=== PATIENT | male | born 2000 | race Caucasian/White ===

== ENCOUNTER 2019-08-05 16:59 | Emergency (ER) | payer MEDICAID ==
[~2019-08-05] VITALS: Ht 157.5 cm; Wt 81.6 kg
[2019-08-05 17:43] LABS: Basophils # (auto) 0 uL; Basophils % (auto) 0.5 % (0.0-2.0); Eosinophils # (auto) 0.1 uL; Eosinophils % (auto) 0.8 % (0.0-7.0); Hematocrit 41.8 % (41.0-53.0); Hemoglobin 14.1 g/dL (13.5-17.5); Lymphocytes # (auto) 1.6 uL; Lymphocytes % (auto) 18.1 % (10.0-50.0); Mean Corpuscular Hemoglobin 28.8 pg (28.0-32.0); Mean Corpuscular Hgb Conc. 33.7 g/dL (32.0-36.0); Mean Corpuscular Volume 85.5 fL (80.0-100.0); Monocytes # (auto) 0.6 uL; Monocytes % (auto) 7.3 % (0.0-12.0); Neutrophils # (auto) 6.5 uL; Neutrophils % (auto) 73.3 % (37.0-80.0); Nucleated Red Blood Cells % 0.1 %; Platelet Count (auto) 380 10^3/uL (140-450); Red Blood Cells 4.88 10^6/uL (4.5-5.90); Red Cell Distribution Width 14.3 % (11.8-14.3); White Blood Cell 8.8 10^3/uL (4.4-10.8)
[2019-08-05 17:55] LABS: Salicylate < 1.7 mg/dL (2.8-20.0)
[2019-08-05 18:01] LABS: Acetaminophen < 2.0 ug/mL (10-30)
[2019-08-05 18:05] LABS: Albumin 4.5 g/dL (3.4-5.0); Calcium 9.2 mg/dL (8.5-10.1); Potassium 3.8 mmol/L (3.5-5.1)
[2019-08-05 18:08] LABS: BUN/Creatinine Ratio 12.7; Bilirubin, Total 0.2 mg/dL (0.2-1.0); Total Protein 8.1 g/dL (6.4-8.2)
[2019-08-05 22:16] LABS: Urine Bacteria NONE SEEN /hpf (None Seen); Urine Blood Negative /uL (Negative); Urine Mucus FEW (None Seen); Urine Specific Gravity 1.032 (1.001-1.035); Urine WBC 1 /hpf (0 - 3)
[2019-08-05 22:20] LABS: Amphetamine Screen, Urine NEGATIVE (NEGATIVE); Barbiturate Scree,Urine NEGATIVE (NEGATIVE); Benzodiazephine Screen, Urine NEGATIVE (NEGATIVE); Cannabinoid Screen, Urine NEGATIVE (NEGATIVE); Cocaine Screen, Urine NEGATIVE (NEGATIVE); Opiate Scree,Urine NEGATIVE (NEGATIVE); Phencyclidine Screen, Urine NEGATIVE (NEGATIVE)
[2019-08-06] MEDS ORDERED: LORazepam 0.5 MG TAB PO ONE (03:00)
[2019-08-06] MEDS ORDERED: HYDROcodone-ACET 10/325MG TAB PO ONE (21:30)
[2019-08-07] MEDS ORDERED: LORazepam 0.5 MG TAB PO ONE
[2019-08-07] MEDS ORDERED: ACETAMINOPHEN 500 MG TAB PO ONE (09:45)
[2019-08-07 13:35] VITALS: BP 140/90
== END 2019-08-07 13:44 | disposition short-term general hospital (02) ==
LOC: EDBD 16:59 → ER 17:04
DX: S61.512A Laceration without foreign body of left wrist, initial encounter (principal); S50.812A Abrasion of left forearm, initial encounter; F20.9 Schizophrenia, unspecified; I10 Essential (primary) hypertension; F31.9 Bipolar disorder, unspecified; M54.2 Cervicalgia; Y93.89 Activity, other specified; Y92.89 Other specified places as the place of occurrence of the external cause; Y99.8 Other external cause status
CPT/HCPCS: 36415; 72125; 80053; 80307; 80329; 81001; 85025

== ENCOUNTER 2020-01-14 17:24 | Inpatient (IN) | payer MEDICAID ==
[~2020-01-14] VITALS: Ht 170.2 cm; Wt 88.4 kg
[2020-01-14] MEDS ORDERED: SODIUM CHLORIDE 0.9% 1,000 ML IVB ONE (17:30)
[2020-01-14] MEDS ORDERED: SUCCINYLCHOLINE CHLORIDE 20 MG/ML 10ML VIAL IV ONE (17:55)
[2020-01-14] MEDS ORDERED: ETOMIDATE (2MG/ML) 20ML VIAL IV ONE (17:55)
[2020-01-14] MEDS ORDERED: NALOXONE HCL 0.4 MG/ML VIAL ONE ×2 (17:57→17:59)
[2020-01-14 18:01] LABS: Basophils # (auto) 0 10 ^3/uL (0-0.2); Basophils % (auto) 0.3 % (0.0-2.0); Eosinophils # (auto) 0.1 10 ^3/uL (0-0.8); Eosinophils % (auto) 0.7 % (0.0-7.0); Hematocrit 44.2 % (41.0-53.0); Hemoglobin 14.8 g/dL (13.5-17.5); Lymphocytes # (auto) 3.1 10 ^3/uL (0.4-5.4); Mean Corpuscular Hemoglobin 28.6 pg (28.0-32.0); Mean Corpuscular Hgb Conc. 33.4 g/dL (32.0-36.0); Mean Corpuscular Volume 85.6 fL (80.0-100.0); Monocytes # (auto) 0.9 10 ^3/uL (0-1.3); Monocytes % (auto) 7.7 % (0.0-12.0); Neutrophils # (auto) 7.3 10 ^3/uL (1.6-8.6); Neutrophils % (auto) 64.3 % (37.0-80.0); Platelet Count (auto) 379 10^3/uL (140-450); Red Blood Cells 5.16 10^6/uL (4.5-5.90); Red Cell Distribution Width 13.3 % (11.8-14.3); White Blood Cell 11.4 10^3/uL (4.4-10.8)
[2020-01-14] MEDS ORDERED: PROPOFOL 100 ML IV SCH (18:13)
[2020-01-14] MEDS ORDERED: PROPOFOL 100 ML IV ONE (18:18)
[2020-01-14 18:24] LABS: Alanine Aminotransferase 28 U/L (16-61); Albumin 4.2 g/dL (3.4-5.0); Anion Gap 10 (5-15); Aspartate Aminotransferase 19 U/L (15-37); BUN/Creatinine Ratio 6.2; Blood Alcohol < 3.0 mg/dL (0-5); Blood Urea Nitrogen 7 mg/dL (7-18); Calcium 8.8 mg/dL (8.5-10.1); Carbon Dioxide 22 mmol/L (21-32); Chloride 105 mmol/L (98-107); GFR African American 106 mL/min; GFR Non-African American 88 mL/min; Glucose 132 mg/dL (74-106); Potassium 3.4 mmol/L (3.5-5.1); Salicylate < 1.7 mg/dL (2.8-20.0); Sodium 137 mmol/L (136-145)
[2020-01-14 18:26] LABS: Alkaline Phosphatase 98 U/L (45-117); Bilirubin, Total 0.4 mg/dL (0.2-1.0); Total Protein 8.1 g/dL (6.4-8.2)
[2020-01-14] MEDS: PROPOFOL 100 ML IV SCH (18:36)
[2020-01-14 18:38] LABS: Acetaminophen < 2.0 ug/mL (10-30)
[2020-01-14] MEDS: SODIUM CHLORIDE 0.9% 1,000 ML IV SCH (18:45)
[2020-01-14] MEDS ORDERED: NITROGLYCERIN 0.4 MG SL TAB SL PRN (18:45)
[2020-01-14] MEDS ORDERED: MORPHINE SULF INJ 2 MG/ML SYRINGE 1ML IV PRN (18:45)
[2020-01-14] MEDS ORDERED: POTASSIUM CHLORIDE 40 MEQ, LIDOCAINE 1% (LOCAL ANESTH.) 4 ML in SODIUM CHL 0.9% 100 ML IV ONE (19:00)
[2020-01-14] MEDS ORDERED: ACTIVATED CHARCOAL 50 GM/240 ML SOL PO ONE (19:00)
[2020-01-14 19:22] LABS: Alcohol, Urine < 3.0 mg/dL (0-5); Amphetamine Screen, Urine NEGATIVE (NEGATIVE); Barbiturate Scree,Urine POSITIVE (NEGATIVE); Benzodiazephine Screen, Urine NEGATIVE (NEGATIVE); Cannabinoid Screen, Urine NEGATIVE (NEGATIVE); Cocaine Screen, Urine NEGATIVE (NEGATIVE); Opiate Scree,Urine NEGATIVE (NEGATIVE); Phencyclidine Screen, Urine NEGATIVE (NEGATIVE)
[2020-01-14 20:05] VITALS: BP 141/84
[2020-01-14] MEDS: fentaNYL Drip 2500mCg/250mlNS 250 ML IV SCH (20:57)
[2020-01-14] MEDS ORDERED: SODIUM BICARBONATE 8.4 % INJ 50ML VIAL IV ONE (21:15)
[2020-01-14] MEDS: cefTRIAXone 1GM/50ML D5W 50 ML IV SCH (21:28)
[2020-01-14 21:50] VITALS: BP 142/91
[2020-01-14] MEDS: MIDAZOLAM DRIP 50 mg/50mL 50 ML IV SCH (22:37)
[2020-01-14] MEDS: CLINDAMYCIN 300MG IV 50 ML IV SCH (23:09)
[2020-01-14 23:48] VITALS: BP 105/56
[2020-01-15] VITALS (11 sets, daily range): BP systolic 102–140; BP diastolic 51–88
[2020-01-15] MEDS: SODIUM CHLORIDE 0.9% 1,000 ML IV SCH ×3 (02:50→16:35)
[2020-01-15 06:08] LABS: Basophils # (auto) 0 10 ^3/uL (0-0.2); Basophils % (auto) 0.1 % (0.0-2.0); Eosinophils # (auto) 0 10 ^3/uL (0-0.8); Eosinophils % (auto) 0.1 % (0.0-7.0); Hematocrit 37.2 % (41.0-53.0); Hemoglobin 12.7 g/dL (13.5-17.5); Lymphocytes # (auto) 0.8 10 ^3/uL (0.4-5.4); Lymphocytes % (auto) 5.3 % (10.0-50.0); Mean Corpuscular Hemoglobin 29.4 pg (28.0-32.0); Mean Corpuscular Hgb Conc. 34.2 g/dL (32.0-36.0); Mean Corpuscular Volume 86.1 fL (80.0-100.0); Monocytes # (auto) 0.8 10 ^3/uL (0-1.3); Monocytes % (auto) 5.7 % (0.0-12.0); Neutrophils # (auto) 12.9 10 ^3/uL (1.6-8.6); Neutrophils % (auto) 88.8 % (37.0-80.0); Platelet Count (auto) 273 10^3/uL (140-450); Red Blood Cells 4.32 10^6/uL (4.5-5.90); Red Cell Distribution Width 13.6 % (11.8-14.3); White Blood Cell 14.6 10^3/uL (4.4-10.8)
[2020-01-15 06:25] LABS: Potassium 3.9 mmol/L (3.5-5.1)
[2020-01-15] MEDS: CLINDAMYCIN 300MG IV 50 ML IV SCH ×2 (06:31→14:24)
[2020-01-15 06:35] LABS: Albumin 3.3 g/dL (3.4-5.0); BUN/Creatinine Ratio 5.8; Bilirubin, Total 0.5 mg/dL (0.2-1.0); Calcium 8.1 mg/dL (8.5-10.1); Total Protein 6.6 g/dL (6.4-8.2)
[2020-01-15 08:47] LABS: Urine WBC None Seen /hpf (0 - 3)
[2020-01-15 09:00] LABS: Urine Amorphous Crystal FEW /hpf (None Seen); Urine Bacteria FEW /hpf (None Seen); Urine Blood 1+ /uL (Negative)
[2020-01-15] MEDS: cefTRIAXone 1GM/50ML D5W 50 ML IV SCH (09:15)
[2020-01-15] MEDS: PANTOPRAZOLE 40 MG/10 ML VIAL INJ IV SCH (09:58)
[2020-01-15] MEDS ORDERED: NALOXONE HCL 0.4 MG/ML VIAL IV ONE (10:00)
[2020-01-15] MEDS ORDERED: GLYCOPYRROLATE 0.2 MG/ML 1ML VIAL IV ONE (15:30)
[2020-01-15] MEDS ORDERED: PIPERACILLIN-TAZOB 3.375GM 100 ML IV ONE (16:15)
[2020-01-15] MEDS ORDERED: ALBUTEROL SULF 2.5 MG/0.5ML(0.5%) NEB SOLN NEB SCH (16:15)
[2020-01-15] MEDS: ALBUTEROL SULF 2.5 MG/0.5ML(0.5%) NEB SOLN NEB SCH ×2 (17:45→21:54)
[2020-01-15] MEDS: IPRATROPIUM BROM 0.5 MG/2.5ML INH SOL NEB SCH ×2 (17:45→21:54)
[2020-01-15] MEDS: fentaNYL Drip 2500mCg/250mlNS 250 ML IV SCH (18:24)
[2020-01-15] MEDS: PROPOFOL 100 ML IV SCH (18:45)
[2020-01-15] MEDS: PIPERACILLIN-TAZOB 3.375GM 100 ML IV SCH (22:05)
[2020-01-15] MEDS: MIDAZOLAM DRIP 50 mg/50mL 50 ML IV SCH (22:07)
[2020-01-16] VITALS (95 sets, daily range): BP systolic 110–139; BP diastolic 64–93
[2020-01-16] MEDS: ALBUTEROL SULF 2.5 MG/0.5ML(0.5%) NEB SOLN NEB SCH ×6 (02:42→22:05)
[2020-01-16] MEDS: IPRATROPIUM BROM 0.5 MG/2.5ML INH SOL NEB SCH ×6 (02:42→22:05)
[2020-01-16 04:24] LABS: Basophils # (auto) 0 10 ^3/uL (0-0.2); Basophils % (auto) 0.2 % (0.0-2.0); Eosinophils # (auto) 0.1 10 ^3/uL (0-0.8); Eosinophils % (auto) 0.9 % (0.0-7.0); Hemoglobin 11.7 g/dL (13.5-17.5); Lymphocytes # (auto) 1.7 10 ^3/uL (0.4-5.4); Lymphocytes % (auto) 20.7 % (10.0-50.0); Mean Corpuscular Hemoglobin 29.5 pg (28.0-32.0); Mean Corpuscular Hgb Conc. 34.3 g/dL (32.0-36.0); Monocytes # (auto) 0.7 10 ^3/uL (0-1.3); Monocytes % (auto) 8.4 % (0.0-12.0); Neutrophils # (auto) 5.7 10 ^3/uL (1.6-8.6); Neutrophils % (auto) 69.8 % (37.0-80.0); Nucleated Red Blood Cells % 0.1 %; Platelet Count (auto) 234 10^3/uL (140-450); Red Blood Cells 3.96 10^6/uL (4.5-5.90); Red Cell Distribution Width 13.5 % (11.8-14.3); White Blood Cell 8.1 10^3/uL (4.4-10.8)
[2020-01-16 04:27] LABS: Potassium 3.2 mmol/L (3.5-5.1)
[2020-01-16] MEDS: PIPERACILLIN-TAZOB 3.375GM 100 ML IV SCH ×4 (04:30→22:00)
[2020-01-16 04:31] LABS: Magnesium 2.1 mg/dL (1.6-2.6)
[2020-01-16] MEDS: MIDAZOLAM DRIP 50 mg/50mL 50 ML IV SCH ×2 (04:47→13:48)
[2020-01-16] MEDS ORDERED: POTASSIUM CHL 20MEQ/100ML 100 ML IV ONE ×2 (06:15→12:30)
[2020-01-16] MEDS: SODIUM CHLORIDE 0.9% 1,000 ML IV SCH ×2 (06:33→12:30)
[2020-01-16] MEDS: PROPOFOL 100 ML IV SCH ×4 (07:04→20:46)
[2020-01-16] MEDS: PANTOPRAZOLE 40 MG/10 ML VIAL INJ IV SCH (09:33)
[2020-01-16] MEDS: ENOXAPARIN SOD 40 MG/0.4 ML SYRINGE SC SCH (09:34)
[2020-01-16] MEDS ORDERED: EPINEPHrine HCL 1 MG/1 ML AMP ONE (10:17)
[2020-01-16] MEDS ORDERED: SODIUM CHLORIDE LOCK 0 ML ONE (10:17)
[2020-01-16] MEDS ORDERED: LIDOCAINE 2%HCL (LOCAL ANESTH.) INJ 20ML MDV ONE (10:17)
[2020-01-16] MEDS ORDERED: LIDOCAINE HCL 2% TOP JELLY 5ML TOP ONE (10:17)
[2020-01-16] MEDS ORDERED: OPTISON 3ml Vial for INJ IV ONE (10:47)
[2020-01-16 10:59] LABS: INR 0.96 (0.9-1.15); Partial Thromboplastin Time 31.1 sec (23.64-32.05)
[2020-01-16] MEDS ORDERED: ACETYLCYSTEINE 20%(200MG/ML) SOL 4ML NEB ONE (12:00)
[2020-01-16] MEDS ORDERED: FLUCONAZOLE 200MG/100ML 100 ML IV ONE (12:30)
[2020-01-16] MEDS: FLUCONAZOLE 200MG/100ML 100 ML IV SCH ×2 (14:00→17:52)
[2020-01-16] MEDS: fentaNYL Drip 2500mCg/250mlNS 250 ML IV SCH (14:11)
[2020-01-17] VITALS (97 sets, daily range): BP systolic 98–162; BP diastolic 50–99
[2020-01-17] MEDS: IPRATROPIUM BROM 0.5 MG/2.5ML INH SOL NEB SCH ×4 (02:03→13:26)
[2020-01-17] MEDS: ALBUTEROL SULF 2.5 MG/0.5ML(0.5%) NEB SOLN NEB SCH ×5 (02:04→22:25)
[2020-01-17] MEDS: PIPERACILLIN-TAZOB 3.375GM 100 ML IV SCH ×4 (04:00→22:00)
[2020-01-17] MEDS: SODIUM CHLORIDE 0.9% 1,000 ML IV SCH ×2 (05:07→21:50)
[2020-01-17] MEDS ORDERED: FLUCONAZOLE 200MG/100ML 100 ML IV SCH (10:00)
[2020-01-17 10:07] LABS: Basophils # (auto) 0.1 10 ^3/uL (0-0.2); Basophils % (auto) 1.2 % (0.0-2.0); Eosinophils # (auto) 0.1 10 ^3/uL (0-0.8); Eosinophils % (auto) 0.9 % (0.0-7.0); Hematocrit 36.9 % (41.0-53.0); Hemoglobin 12.2 g/dL (13.5-17.5); Lymphocytes # (auto) 1.5 10 ^3/uL (0.4-5.4); Lymphocytes % (auto) 18.8 % (10.0-50.0); Mean Corpuscular Hemoglobin 28.4 pg (28.0-32.0); Mean Corpuscular Hgb Conc. 33.1 g/dL (32.0-36.0); Mean Corpuscular Volume 85.8 fL (80.0-100.0); Monocytes # (auto) 0.7 10 ^3/uL (0-1.3); Monocytes % (auto) 7.9 % (0.0-12.0); Neutrophils # (auto) 5.9 10 ^3/uL (1.6-8.6); Neutrophils % (auto) 71.2 % (37.0-80.0); Platelet Count (auto) 290 10^3/uL (140-450); Red Cell Distribution Width 13.5 % (11.8-14.3); White Blood Cell 8.2 10^3/uL (4.4-10.8)
[2020-01-17 10:16] LABS: BUN/Creatinine Ratio 6.4; Calcium 8.6 mg/dL (8.5-10.1); Potassium 3.7 mmol/L (3.5-5.1)
[2020-01-17 10:36] LABS: Alcohol, Urine < 3.0 mg/dL (0-5); Amphetamine Screen, Urine NEGATIVE (NEGATIVE); Barbiturate Scree,Urine POSITIVE (NEGATIVE); Benzodiazephine Screen, Urine POSITIVE (NEGATIVE); Cannabinoid Screen, Urine NEGATIVE (NEGATIVE); Cocaine Screen, Urine NEGATIVE (NEGATIVE); Opiate Scree,Urine NEGATIVE (NEGATIVE); Phencyclidine Screen, Urine NEGATIVE (NEGATIVE)
[2020-01-17] MEDS: ENOXAPARIN SOD 40 MG/0.4 ML SYRINGE SC SCH (11:50)
[2020-01-17] MEDS: PANTOPRAZOLE 40 MG/10 ML VIAL INJ IV SCH (11:50)
[2020-01-17] MEDS ORDERED: VANCOMYCIN PER PHARMACY 0 MG IV SCH (13:30)
[2020-01-17] MEDS: VANCOMYCIN 1GM/250ML 250 ML IV SCH ×2 (16:14→22:00)
[2020-01-17] MEDS: MIDAZOLAM DRIP 50 mg/50mL 50 ML IV SCH (16:30)
[2020-01-17] MEDS ORDERED: GLYCOPYRROLATE 0.2 MG/ML 1ML VIAL IV ONE (17:30)
[2020-01-17] MEDS ORDERED: FUROSEMIDE 20 MG/2 ML VIAL IV ONE (17:30)
[2020-01-17] MEDS: fentaNYL Drip 2500mCg/250mlNS 250 ML IV SCH (18:36)
[2020-01-17] MEDS: PROPOFOL 100 ML IV SCH (19:04)
[2020-01-17] MEDS ORDERED: CLON0.5T PO (21:47)
[2020-01-17] MEDS ORDERED: SERT100T PO (21:47)
[2020-01-17] MEDS ORDERED: LURA40TA PO (21:48)
[2020-01-17] MEDS ORDERED: LURA80TA PO (21:48)
[2020-01-17] MEDS ORDERED: OLAN1TAB19 PO (21:49)
[2020-01-17] MEDS ORDERED: OLAN1TAB7 PO (21:49)
[2020-01-17] MEDS ORDERED: VENL75TA PO (21:49)
[2020-01-17] MEDS: ACETYLCYSTEINE 20%(200MG/ML) SOL 4ML NEB SCH (22:25)
[2020-01-18] VITALS (78 sets, daily range): BP systolic 101–149; BP diastolic 50–85
[2020-01-18] MEDS: PIPERACILLIN-TAZOB 3.375GM 100 ML IV SCH ×4 (03:53→22:00)
[2020-01-18 04:00] LABS: Magnesium 2.2 mg/dL (1.6-2.6); Potassium 3.2 mmol/L (3.5-5.1)
[2020-01-18] MEDS: VANCOMYCIN 1GM/250ML 250 ML IV SCH ×2 (06:00→21:30)
[2020-01-18] MEDS: ALBUTEROL SULF 2.5 MG/0.5ML(0.5%) NEB SOLN NEB SCH ×3 (06:18→22:08)
[2020-01-18] MEDS: ACETYLCYSTEINE 20%(200MG/ML) SOL 4ML NEB SCH ×3 (06:18→22:19)
[2020-01-18] MEDS: MIDAZOLAM DRIP 50 mg/50mL 50 ML IV SCH (09:21)
[2020-01-18] MEDS: PANTOPRAZOLE 40 MG/10 ML VIAL INJ IV SCH (10:29)
[2020-01-18] MEDS: ENOXAPARIN SOD 40 MG/0.4 ML SYRINGE SC SCH (10:29)
[2020-01-18] MEDS: SODIUM CHLORIDE 0.9% 1,000 ML IV SCH (12:00)
[2020-01-18] MEDS: POTASSIUM CHL 20MEQ/100ML 100 ML IV SCH ×2 (13:46→15:46)
[2020-01-18] MEDS: DexMEDEtomidine 400 MCG in D5W 5% 96 ML IV SCH ×2 (13:57→17:14)
[2020-01-18] MEDS ORDERED: GLYCOPYRROLATE 0.2 MG/ML 1ML VIAL IV ONE (15:00)
[2020-01-18] MEDS: FLUCONAZOLE 200MG/100ML 100 ML IV SCH ×2 (15:16→16:59)
[2020-01-18] MEDS: ONDANSETRON HCL 4 MG/2 ML VIAL IV PRN (15:30)
[2020-01-18] MEDS: fentaNYL Drip 2500mCg/250mlNS 250 ML IV SCH (20:04)
[2020-01-19] VITALS (9 sets, daily range): BP systolic 101–137; BP diastolic 59–81
[2020-01-19] MEDS: PIPERACILLIN-TAZOB 3.375GM 100 ML IV SCH ×2 (04:00→10:26)
[2020-01-19] MEDS: ALBUTEROL SULF 2.5 MG/0.5ML(0.5%) NEB SOLN NEB SCH ×3 (07:25→22:26)
[2020-01-19] MEDS: ACETYLCYSTEINE 20%(200MG/ML) SOL 4ML NEB SCH ×3 (07:25→22:26)
[2020-01-19] MEDS: PANTOPRAZOLE 40 MG/10 ML VIAL INJ IV SCH (10:25)
[2020-01-19] MEDS: FLUCONAZOLE 200MG/100ML 100 ML IV SCH ×2 (10:25→13:26)
[2020-01-19] MEDS: ENOXAPARIN SOD 40 MG/0.4 ML SYRINGE SC SCH (10:26)
[2020-01-19] MEDS: SODIUM CHLORIDE 0.9% 1,000 ML IV SCH ×2 (10:27→23:50)
[2020-01-19] MEDS ORDERED: VANCOMYCIN 1GM/250ML 250 ML IV ONE ×2 (10:45→12:30)
[2020-01-19] MEDS: ONDANSETRON HCL 4 MG/2 ML VIAL IV PRN ×2 (10:53→20:30)
[2020-01-19] MEDS: VANCOMYCIN 1GM/250ML 250 ML IV SCH (20:29)
[2020-01-20] MEDS: SODIUM CHLORIDE 0.9% 1,000 ML IV SCH (02:52)
[2020-01-20 05:11] VITALS: BP 105/66
[2020-01-20] MEDS: ALBUTEROL SULF 2.5 MG/0.5ML(0.5%) NEB SOLN NEB SCH ×2 (06:54→14:17)
[2020-01-20] MEDS: ACETYLCYSTEINE 20%(200MG/ML) SOL 4ML NEB SCH ×2 (06:54→14:18)
[2020-01-20 09:00] VITALS: BP 135/85
[2020-01-20] MEDS: VANCOMYCIN 1GM/250ML 250 ML IV SCH (09:46)
[2020-01-20] MEDS: PANTOPRAZOLE 40 MG/10 ML VIAL INJ IV SCH (09:47)
[2020-01-20] MEDS: ENOXAPARIN SOD 40 MG/0.4 ML SYRINGE SC SCH (09:47)
[2020-01-20] MEDS: FLUCONAZOLE 200MG/100ML 100 ML IV SCH (12:15)
[2020-01-20 13:00] VITALS: BP 129/77
[2020-01-20] MEDS: ONDANSETRON HCL 4 MG/2 ML VIAL IV PRN (13:11)
[2020-01-20] MEDS ORDERED: levoFLOXacin 250 MG TAB PO ONE (14:00)
[2020-01-20] MEDS ORDERED: FLUC200T35 PO (14:02)
[2020-01-20] MEDS ORDERED: LEVO750T2 PO (14:02)
[2020-01-20 17:00] VITALS: BP 124/79
[2020-01-20 22:57] VITALS: BP 134/85
[2020-01-20] MEDS: LORazepam 0.5 MG TAB PO PRN (23:11)
[2020-01-21 04:46] VITALS: BP 134/85
[2020-01-21 04:48] VITALS: BP 127/64
[2020-01-21 09:00] VITALS: BP 116/63
[2020-01-21] MEDS: ENOXAPARIN SOD 40 MG/0.4 ML SYRINGE SC SCH (09:43)
[2020-01-21] MEDS: FLUCONAZOLE 100 MG TAB PO SCH (09:45)
[2020-01-21] MEDS ORDERED: levoFLOXacin 250 MG TAB PO SCH (10:00)
[2020-01-21] MEDS ORDERED: DOXY-286 PO (10:56)
[2020-01-21] MEDS ORDERED: DOXYCYCLINE 100 MG TAB/CAP PO ONE (11:00)
[2020-01-21 13:00] VITALS: BP 136/81
[2020-01-21 17:01] VITALS: BP 135/77
[2020-01-21] MEDS: ONDANSETRON HCL 4 MG/2 ML VIAL IV PRN (18:01)
[2020-01-21 22:00] VITALS: BP 136/79
[2020-01-21] MEDS ORDERED: TEMAZEPAM 15 MG CAP PO PRN (22:00)
[2020-01-21] MEDS: DOXYCYCLINE 100 MG TAB/CAP PO SCH (22:04)
[2020-01-21] MEDS: LORazepam 0.5 MG TAB PO PRN (22:09)
[2020-01-22 05:56] VITALS: BP 120/73
[2020-01-22] MEDS: ENOXAPARIN SOD 40 MG/0.4 ML SYRINGE SC SCH (10:20)
[2020-01-22] MEDS: ONDANSETRON HCL 4 MG/2 ML VIAL IV PRN (10:20)
[2020-01-22] MEDS: DOXYCYCLINE 100 MG TAB/CAP PO SCH ×2 (10:20→21:28)
[2020-01-22] MEDS: FLUCONAZOLE 100 MG TAB PO SCH (10:20)
[2020-01-22 12:28] LABS: Urine Bacteria NONE SEEN /hpf (None Seen); Urine Blood TRACE /uL (Negative); Urine Hyaline Cast FEW /lpf (0 - 2); Urine Mucus FEW (None Seen); Urine Specific Gravity 1.022 (1.001-1.035); Urine WBC 5 /hpf (0 - 3)
[2020-01-22 13:30] VITALS: BP 122/66
[2020-01-22 16:46] VITALS: BP 120/72
[2020-01-23] MEDS: ONDANSETRON HCL 4 MG/2 ML VIAL IV PRN ×2 (04:44→14:11)
[2020-01-23 05:00] VITALS: BP 128/75
[2020-01-23 06:10] LABS: Calcium 9.9 mg/dL (8.5-10.1); Potassium 3.4 mmol/L (3.5-5.1)
[2020-01-23 06:13] LABS: BUN/Creatinine Ratio 24.5
[2020-01-23 09:00] VITALS: BP 124/65
[2020-01-23] MEDS ORDERED: POTASSIUM CHL 20 Meq TABLET PO ONE (10:00)
[2020-01-23] MEDS: DOXYCYCLINE 100 MG TAB/CAP PO SCH (10:04)
[2020-01-23] MEDS: FLUCONAZOLE 100 MG TAB PO SCH (10:04)
[2020-01-23] MEDS: ENOXAPARIN SOD 40 MG/0.4 ML SYRINGE SC SCH (10:04)
[2020-01-23] MEDS ORDERED: FAMOTIDINE 20 MG TAB PO ONE (13:30)
[2020-01-23] MEDS ORDERED: DOXY-286 PO (13:36)
[2020-01-23] MEDS ORDERED: FLUC200T35 PO (13:36)
[2020-01-23 16:49] VITALS: BP 123/50
== END 2020-01-23 16:49 | disposition home or self-care (01) | DRG 812 ==
LOC: ER 17:24 → EDBD 17:24 → TELE 17:25 → ICU WEST 01-15 23:54 → TELE-WESTW 01-19 05:55 → WEST WING 01-23 04:29
PROVIDERS: ADMIT Nurse Practitioner Acute Care; ATTEND Internal Medicine
PROC: 5A1955Z Respiratory Ventilation, Greater than 96 Consecutive Hours (ICD-10-PCS; principal; 2020-01-14)
PROC: 0BH17EZ Insertion of Endotracheal Airway into Trachea, Via Natural or Artificial Opening (ICD-10-PCS; 2020-01-14)
PROC: 0BCB8ZZ Extirpation of Matter from Left Lower Lobe Bronchus, Via Natural or Artificial Opening Endoscopic (ICD-10-PCS; 2020-01-16)
DX: T46.5X2A Poisoning by other antihypertensive drugs, intentional self-harm, initial encounter (principal); J96.01 Acute respiratory failure with hypoxia; J69.8 Pneumonitis due to inhalation of other solids and liquids; A41.9 Sepsis, unspecified organism; J15.212 Pneumonia due to Methicillin resistant Staphylococcus aureus; T17.590A Other foreign object in bronchus causing asphyxiation, initial encounter; T42.6X2A Poisoning by other antiepileptic and sedative-hypnotic drugs, intentional self-harm, initial encounter; T42.4X2A Poisoning by benzodiazepines, intentional self-harm, initial encounter; F20.9 Schizophrenia, unspecified; E87.6 Hypokalemia; E66.9 Obesity, unspecified; I10 Essential (primary) hypertension; F31.9 Bipolar disorder, unspecified; Z79.899 Other long term (current) drug therapy; Y92.89 Other specified places as the place of occurrence of the external cause; Z68.30 Body mass index [BMI] 30.0-30.9, adult
CPT/HCPCS: 31500; 36415; 36600; 71045; 74176; 80048; 80053; 80184; 80202; 80307; 80320; 80329; 81001; 82565; 82805; 83735; 83880; 84132; 85025; 85610; 85730; 87040; 87070; 87077; 87081; 87086; 87186; 87205; 93005; 93306; 94002; 94003; 94640; 94668; 99291; C9113; G0378; J0171; J0330; J0696; J1450; J2001; J2250; J2405; J2543; J2704; J3480; J3490; J7060; Q9956

== ENCOUNTER 2020-02-07 07:34 | Emergency (ER) | payer MEDICAID ==
[~2020-02-07 07:34] MED LIST: CLON0.5T PO; DOXY-286 PO; FLUC200T35 PO; LURA40TA PO; LURA80TA PO; OLAN1TAB19 PO; OLAN1TAB7 PO; SERT100T PO; VENL75TA PO
[2020-02-07 07:47] VITALS: BP 119/76
== END 2020-02-07 09:36 | disposition home or self-care (01) ==
LOC: ER 07:34
DX: J40 Bronchitis, not specified as acute or chronic (principal); F41.9 Anxiety disorder, unspecified
CPT/HCPCS: 71045

== ENCOUNTER 2020-02-17 10:36 | Emergency (ER) | payer MEDICAID ==
[~2020-02-17] VITALS: Ht 157.5 cm; Wt 81.6 kg
[2020-02-17] MEDS ORDERED: SODIUM CHLORIDE 0.9% 1,000 ML IVB ONE (10:44)
[2020-02-17] MEDS ORDERED: PANTOPRAZOLE 40 MG/10 ML VIAL INJ IV STA (10:44)
[2020-02-17] MEDS ORDERED: ONDANSETRON HCL 4 MG/2 ML VIAL IV ONE (10:45)
[2020-02-17 11:09] LABS: Basophils # (auto) 0 10 ^3/uL (0-0.2); Basophils % (auto) 0.6 % (0.0-2.0); Eosinophils # (auto) 0 10 ^3/uL (0-0.8); Eosinophils % (auto) 0.5 % (0.0-7.0); Hematocrit 49.5 % (41.0-53.0); Hemoglobin 16.8 g/dL (13.5-17.5); Lymphocytes # (auto) 1.4 10 ^3/uL (0.4-5.4); Lymphocytes % (auto) 16.6 % (10.0-50.0); Mean Corpuscular Hemoglobin 29.7 pg (28.0-32.0); Mean Corpuscular Hgb Conc. 34.1 g/dL (32.0-36.0); Mean Corpuscular Volume 87.2 fL (80.0-100.0); Monocytes # (auto) 1.1 10 ^3/uL (0-1.3); Monocytes % (auto) 12.9 % (0.0-12.0); Neutrophils # (auto) 5.8 10 ^3/uL (1.6-8.6); Neutrophils % (auto) 69.4 % (37.0-80.0); Nucleated Red Blood Cells % 0.1 %; Platelet Count (auto) 233 10^3/uL (140-450); Red Blood Cells 5.67 10^6/uL (4.5-5.90); Red Cell Distribution Width 14.3 % (11.8-14.3); White Blood Cell 8.3 10^3/uL (4.4-10.8)
[2020-02-17 11:25] LABS: Albumin 4.5 g/dL (3.4-5.0); Calcium 10.7 mg/dL (8.5-10.1); Potassium 3.8 mmol/L (3.5-5.1)
[2020-02-17 11:28] LABS: BUN/Creatinine Ratio 14.5; Bilirubin, Total 1.3 mg/dL (0.2-1.0); Total Protein 8.8 g/dL (6.4-8.2)
[2020-02-17 11:45] VITALS: BP 110/68
[2020-02-17 11:55] LABS: Urine Bacteria NONE SEEN /hpf (None Seen); Urine Blood Negative /uL (Negative); Urine Mucus FEW (None Seen); Urine Specific Gravity 1.029 (1.001-1.035); Urine WBC 4 /hpf (0 - 3)
== END 2020-02-17 12:44 | disposition home or self-care (01) ==
LOC: ER 10:36
DX: R10.84 Generalized abdominal pain (principal); R11.2 Nausea with vomiting, unspecified; J45.909 Unspecified asthma, uncomplicated; I10 Essential (primary) hypertension; Z79.2 Long term (current) use of antibiotics; Z79.899 Other long term (current) drug therapy
CPT/HCPCS: 36415; 74176; 80053; 81001; 83690; 85025; 96361; 96374; 96375; 99284; C9113; J2405; J7030

== ENCOUNTER 2020-03-09 11:24 | Emergency (ER) | payer OTHER, MEDICAID ==
[~2020-03-09] VITALS: Ht 157.5 cm; Wt 82.1 kg
[2020-03-09 11:52] VITALS: BP 120/73
[2020-03-09] MEDS ORDERED: ONDANSETRON ODT 4 MG TAB PO ONE (12:30)
== END 2020-03-09 12:50 | disposition home or self-care (01) ==
LOC: ER 11:24
DX: R11.2 Nausea with vomiting, unspecified (principal); R19.7 Diarrhea, unspecified; R10.84 Generalized abdominal pain; I10 Essential (primary) hypertension; J45.909 Unspecified asthma, uncomplicated
CPT/HCPCS: 99283; Q0162

== ENCOUNTER 2020-05-28 16:30 | Emergency (ER) | payer OTHER, MEDICAID ==
[~2020-05-28] VITALS: Ht 170.2 cm; Wt 84.4 kg
[~2020-05-28 16:30] MED LIST changes: -VENL75TA PO; +VENL75TA2 PO
[2020-05-28 18:07] LABS: Basophils # (auto) 0 10 ^3/uL (0-0.2); Basophils % (auto) 0.4 % (0.0-2.0); Eosinophils # (auto) 0 10 ^3/uL (0-0.8); Eosinophils % (auto) 0.6 % (0.0-7.0); Hemoglobin 13.8 g/dL (13.5-17.5); Lymphocytes # (auto) 1.6 10 ^3/uL (0.4-5.4); Lymphocytes % (auto) 21.4 % (10.0-50.0); Mean Corpuscular Hgb Conc. 33.6 g/dL (32.0-36.0); Mean Corpuscular Volume 89.2 fL (80.0-100.0); Monocytes # (auto) 0.6 10 ^3/uL (0-1.3); Monocytes % (auto) 7.6 % (0.0-12.0); Neutrophils # (auto) 5.1 10 ^3/uL (1.6-8.6); Nucleated Red Blood Cells % 0.1 %; Platelet Count (auto) 320 10^3/uL (140-450); Red Cell Distribution Width 12.6 % (11.8-14.3); White Blood Cell 7.3 10^3/uL (4.4-10.8)
[2020-05-28 18:25] LABS: Anion Gap 8 (5-15); BUN/Creatinine Ratio 4.3; Blood Alcohol < 3.0 mg/dL (0-5); Blood Urea Nitrogen 5 mg/dL (7-18); Carbon Dioxide 27 mmol/L (21-32); Chloride 105 mmol/L (98-107); GFR African American 104 mL/min; GFR Non-African American 86 mL/min; Glucose 93 mg/dL (74-106); Potassium 3.8 mmol/L (3.5-5.1); Sodium 140 mmol/L (136-145)
[2020-05-28 18:29] LABS: Salicylate < 1.7 mg/dL (2.8-20.0)
[2020-05-28 18:34] LABS: Acetaminophen < 2.0 ug/mL (10-30); Alanine Aminotransferase 27 U/L (16-61); Alkaline Phosphatase 65 U/L (45-117); Aspartate Aminotransferase 13 U/L (15-37); Bilirubin, Total 0.3 mg/dL (0.2-1.0)
[2020-05-28 19:35] LABS: Alcohol, Urine < 3.0 mg/dL (0-10); Amphetamine Screen, Urine NEGATIVE (NEGATIVE); Barbiturate Scree,Urine POSITIVE (NEGATIVE); Benzodiazephine Screen, Urine NEGATIVE (NEGATIVE); Cannabinoid Screen, Urine NEGATIVE (NEGATIVE); Cocaine Screen, Urine NEGATIVE (NEGATIVE); Opiate Scree,Urine NEGATIVE (NEGATIVE); Phencyclidine Screen, Urine NEGATIVE (NEGATIVE)
[2020-05-28 21:48] LABS: Acetaminophen < 2.0 ug/mL (10-30); Albumin 3.5 g/dL (3.4-5.0); BUN/Creatinine Ratio 7.5; Potassium 3.9 mmol/L (3.5-5.1); Salicylate < 1.7 mg/dL (2.8-20.0)
[2020-05-28 21:55] LABS: Bilirubin, Total 0.3 mg/dL (0.2-1.0); Total Protein 7.2 g/dL (6.4-8.2)
[2020-05-28 22:04] LABS: Calcium 9.4 mg/dL (8.5-10.1)
[2020-05-29] MEDS ORDERED: ALPRAZolam 0.5 MG TAB PO ONE (04:30)
[2020-05-29] MEDS ORDERED: ONDANSETRON ODT 4 MG TAB PO ONE (12:45)
[2020-05-30 03:54] VITALS: BP 136/81
== END 2020-05-30 04:19 | disposition short-term general hospital (02) ==
LOC: EDBD 16:30 → ER 16:30
DX: S60.812A Abrasion of left wrist, initial encounter (principal); R45.851 Suicidal ideations; F31.9 Bipolar disorder, unspecified; F20.9 Schizophrenia, unspecified; J45.909 Unspecified asthma, uncomplicated; X78.9XXA Intentional self-harm by unspecified sharp object, initial encounter; Y93.89 Activity, other specified; Y99.8 Other external cause status; Y92.89 Other specified places as the place of occurrence of the external cause
CPT/HCPCS: 36415; 80053; 80307; 80320; 80329; 85025; Q0162

== ENCOUNTER → 2020-06-17 | Emergency (ER) | payer MEDICAID ==
[~2020-06-17] VITALS: Ht 160 cm; Wt 83.9 kg
[~2020-06-17] MED LIST changes: +IBUPROFEN 800 MG TAB PO ONE; +MECLIZINE HCL 25 MG TAB PO ONE; +ONDANSETRON ODT 4 MG TAB PO PRN; +PANTOPRAZOLE 40 MG TAB PO ONE; +SODIUM CHLORIDE 0.9% 1,000 ML IVB ONE
[2020-06-17 13:03] LABS: Urine Bacteria NONE SEEN /hpf (None Seen); Urine Blood Negative /uL (Negative); Urine Specific Gravity 1.009 (1.001-1.035); Urine WBC <1 /hpf (0 - 3)
[2020-06-17 13:26] LABS: Alcohol, Urine < 3.0 mg/dL (0-10); Amphetamine Screen, Urine NEGATIVE (NEGATIVE); Barbiturate Scree,Urine NEGATIVE (NEGATIVE); Benzodiazephine Screen, Urine NEGATIVE (NEGATIVE); Cannabinoid Screen, Urine NEGATIVE (NEGATIVE); Cocaine Screen, Urine NEGATIVE (NEGATIVE); Opiate Scree,Urine NEGATIVE (NEGATIVE); Phencyclidine Screen, Urine NEGATIVE (NEGATIVE)
[2020-06-17 14:12] LABS: Basophils # (auto) 0 10 ^3/uL (0-0.2); Basophils % (auto) 0.3 % (0.0-2.0); Eosinophils # (auto) 0 10 ^3/uL (0-0.8); Eosinophils % (auto) 0.1 % (0.0-7.0); Hematocrit 44.7 % (41.0-53.0); Hemoglobin 15.4 g/dL (13.5-17.5); Lymphocytes # (auto) 1.3 10 ^3/uL (0.4-5.4); Lymphocytes % (auto) 12.3 % (10.0-50.0); Mean Corpuscular Hemoglobin 30.6 pg (28.0-32.0); Mean Corpuscular Hgb Conc. 34.5 g/dL (32.0-36.0); Mean Corpuscular Volume 88.9 fL (80.0-100.0); Monocytes # (auto) 0.7 10 ^3/uL (0-1.3); Monocytes % (auto) 6.6 % (0.0-12.0); Neutrophils # (auto) 8.4 10 ^3/uL (1.6-8.6); Neutrophils % (auto) 80.7 % (37.0-80.0); Platelet Count (auto) 343 10^3/uL (140-450); Red Blood Cells 5.03 10^6/uL (4.5-5.90); Red Cell Distribution Width 12.8 % (11.8-14.3); White Blood Cell 10.4 10^3/uL (4.4-10.8)
[2020-06-17 14:33] LABS: Albumin 4.5 g/dL (3.4-5.0); Anion Gap 5 (5-15); BUN/Creatinine Ratio 13.7; Blood Alcohol < 3.0 mg/dL (0-5); Blood Urea Nitrogen 16 mg/dL (7-18); Calcium 9.3 mg/dL (8.5-10.1); Carbon Dioxide 28 mmol/L (21-32); Chloride 101 mmol/L (98-107); GFR African American 102 mL/min; GFR Non-African American 84 mL/min; Glucose 85 mg/dL (74-106); Magnesium 2.5 mg/dL (1.6-2.6); Potassium 4.2 mmol/L (3.5-5.1); Sodium 134 mmol/L (136-145)
[2020-06-17 14:34] LABS: Salicylate < 1.7 mg/dL (2.8-20.0)
[2020-06-17 14:36] LABS: Acetaminophen < 2.0 ug/mL (10-30); Alanine Aminotransferase 21 U/L (16-61); Alkaline Phosphatase 74 U/L (45-117); Aspartate Aminotransferase 13 U/L (15-37); Bilirubin, Total 0.5 mg/dL (0.2-1.0); Total Protein 7.6 g/dL (6.4-8.2)
[2020-06-20 04:34] VITALS: BP 128/76
== END | disposition home or self-care (01) ==
LOC: EDBD 11:43 → ER 11:43 → EDUNIT# 11:43
DX: T43.292A Poisoning by other antidepressants, intentional self-harm, initial encounter (principal); F32.9 Major depressive disorder, single episode, unspecified; J45.909 Unspecified asthma, uncomplicated; I10 Essential (primary) hypertension; F20.9 Schizophrenia, unspecified; Y92.89 Other specified places as the place of occurrence of the external cause
CPT/HCPCS: 36415; 71045; 74021; 80053; 80307; 80320; 80329; 81001; 83690; 83735; 85025; 93005; 96360; 99285; J7030

== ENCOUNTER 2020-12-10 18:58 | Emergency (ER) | payer MEDICAID ==
[~2020-12-10] VITALS: Ht 157.5 cm; Wt 95.3 kg
[~2020-12-10 18:58] MED LIST changes: -IBUPROFEN 800 MG TAB PO ONE; -MECLIZINE HCL 25 MG TAB PO ONE; -ONDANSETRON ODT 4 MG TAB PO PRN; -PANTOPRAZOLE 40 MG TAB PO ONE; -SODIUM CHLORIDE 0.9% 1,000 ML IVB ONE
[2020-12-10 19:54] LABS: Alcohol, Urine < 3.0 mg/dL (0-10); Amphetamine Screen, Urine NEGATIVE (NEGATIVE); Barbiturate Scree,Urine POSITIVE (NEGATIVE); Benzodiazephine Screen, Urine NEGATIVE (NEGATIVE); Cannabinoid Screen, Urine NEGATIVE (NEGATIVE); Cocaine Screen, Urine NEGATIVE (NEGATIVE); Opiate Scree,Urine NEGATIVE (NEGATIVE); Phencyclidine Screen, Urine NEGATIVE (NEGATIVE)
[2020-12-10 20:34] LABS: Salicylate < 1.7 mg/dL (2.8-20.0)
[2020-12-10 20:56] LABS: Acetaminophen < 2.0 ug/mL (10-30)
[2020-12-10] MEDS ORDERED: ALBUTEROL SULF 2.5 MG/0.5ML(0.5%) NEB SOLN NEB ONE (22:00)
[2020-12-10] MEDS ORDERED: IPRATROPIUM BROM 0.5 MG/2.5ML INH SOL NEB ONE (22:00)
[2020-12-10 22:45] LABS: Urine Bacteria FEW /hpf (None Seen); Urine Blood Negative /uL (Negative); Urine Specific Gravity 1.007 (1.001-1.035); Urine WBC 1 /hpf (0 - 3)
[2020-12-10 23:00] LABS: Basophils # (auto) 0 10 ^3/uL (0-0.2); Basophils % (auto) 0.6 % (0.0-2.0); Eosinophils # (auto) 0.1 10 ^3/uL (0-0.8); Eosinophils % (auto) 1.5 % (0.0-7.0); Hematocrit 40.4 % (41.0-53.0); Lymphocytes # (auto) 2.2 10 ^3/uL (0.4-5.4); Lymphocytes % (auto) 25.1 % (10.0-50.0); Mean Corpuscular Hemoglobin 30.5 pg (28.0-32.0); Mean Corpuscular Hgb Conc. 34.7 g/dL (32.0-36.0); Mean Corpuscular Volume 87.8 fL (80.0-100.0); Monocytes # (auto) 0.5 10 ^3/uL (0-1.3); Neutrophils # (auto) 5.8 10 ^3/uL (1.6-8.6); Neutrophils % (auto) 66.8 % (37.0-80.0); Nucleated Red Blood Cells % 0.1 %; Platelet Count (auto) 370 10^3/uL (140-450); Red Blood Cells 4.61 10^6/uL (4.5-5.90); Red Cell Distribution Width 13.1 % (11.8-14.3); White Blood Cell 8.8 10^3/uL (4.4-10.8)
[2020-12-10 23:18] LABS: Salicylate < 1.7 mg/dL (2.8-20.0)
[2020-12-10 23:20] LABS: Alanine Aminotransferase 63 U/L (16-61); Albumin 4.2 g/dL (3.4-5.0); Anion Gap 11 (5-15); Aspartate Aminotransferase 29 U/L (15-37); Blood Alcohol < 3.0 mg/dL (0-5); Blood Urea Nitrogen 8 mg/dL (7-18); Calcium 8.6 mg/dL (8.5-10.1); Carbon Dioxide 25 mmol/L (21-32); Chloride 101 mmol/L (98-107); GFR African American 103 mL/min; GFR Non-African American 85 mL/min; Glucose 103 mg/dL (74-106); Magnesium 2.5 mg/dL (1.6-2.6); Potassium 3.4 mmol/L (3.5-5.1); Sodium 137 mmol/L (136-145)
[2020-12-10 23:21] LABS: Acetaminophen < 2.0 ug/mL (10-30)
[2020-12-10 23:29] LABS: Alkaline Phosphatase 107 U/L (45-117); Bilirubin, Total 0.4 mg/dL (0.2-1.0); Total Protein 7.3 g/dL (6.4-8.2)
[2020-12-11] MEDS ORDERED: IBUPROFEN 800 MG TAB PO ONE (00:45)
[2020-12-11] MEDS ORDERED: LORazepam 0.5 MG TAB PO ONE (05:15)
[2020-12-11] MEDS ORDERED: diphenhdrAMINE HCL 25 MG CAP PO ONE (05:15)
[2020-12-11] MEDS ORDERED: ONDANSETRON HCL 4 MG/2 ML VIAL ONE (13:51)
[2020-12-11] MEDS ORDERED: ONDANSETRON HCL 4 MG/2 ML VIAL IM ONE (14:00)
[2020-12-11 17:00] VITALS: BP 121/82
== END 2020-12-11 14:50 ==
LOC: ER 18:58
DX: F32.9 Major depressive disorder, single episode, unspecified (principal); R45.851 Suicidal ideations; F41.9 Anxiety disorder, unspecified; S60.812A Abrasion of left wrist, initial encounter; S60.811A Abrasion of right wrist, initial encounter; J45.909 Unspecified asthma, uncomplicated; I10 Essential (primary) hypertension; Z20.822 Contact with and (suspected) exposure to COVID-19; X78.8XXA Intentional self-harm by other sharp object, initial encounter; Y93.89 Activity, other specified; Y92.89 Other specified places as the place of occurrence of the external cause; Y99.8 Other external cause status
CPT/HCPCS: 36415; 80053; 80307; 80320; 80329; 81001; 83735; 85025; 87426; 94640; 96372; 99285; C9803; J2405; J7644; U0003

== ENCOUNTER 2021-01-27 18:27 | Emergency (ER) | payer MEDICAID ==
[~2021-01-27] VITALS: Ht 157.5 cm; Wt 86.2 kg
[~2021-01-27 18:27] MED LIST changes: +VENL1TAB99 PO; -VENL75TA2 PO
[2021-01-27 19:30] LABS: Salicylate < 1.7 mg/dL (2.8-20.0)
[2021-01-27 19:31] LABS: Acetaminophen < 2.0 ug/mL (10-30)
[2021-01-28 00:30] VITALS: BP 122/77
== END 2021-01-28 00:44 | disposition home or self-care (01) ==
LOC: ER 18:32
DX: S60.812A Abrasion of left wrist, initial encounter (principal); R45.851 Suicidal ideations; F41.9 Anxiety disorder, unspecified; F32.9 Major depressive disorder, single episode, unspecified; F20.9 Schizophrenia, unspecified; J45.909 Unspecified asthma, uncomplicated; X78.9XXA Intentional self-harm by unspecified sharp object, initial encounter; Y93.89 Activity, other specified; Y92.89 Other specified places as the place of occurrence of the external cause; Y99.8 Other external cause status
CPT/HCPCS: 36415; 80320; 80329

== ENCOUNTER 2021-05-23 21:20 | Emergency (ER) | payer MEDICAID ==
[~2021-05-23] VITALS: Ht 167.6 cm; Wt 97.5 kg
[2021-05-23 22:02] LABS: Basophils # (auto) 0.1 10 ^3/uL (0-0.2); Basophils % (auto) 0.7 % (0.0-2.0); Eosinophils # (auto) 0.1 10 ^3/uL (0-0.8); Eosinophils % (auto) 1.3 % (0.0-7.0); Hematocrit 41.2 % (41.0-53.0); Lymphocytes # (auto) 2.3 10 ^3/uL (0.4-5.4); Lymphocytes % (auto) 29.2 % (10.0-50.0); Mean Corpuscular Hemoglobin 28.9 pg (28.0-32.0); Monocytes # (auto) 0.6 10 ^3/uL (0-1.3); Monocytes % (auto) 7.5 % (0.0-12.0); Neutrophils # (auto) 4.8 10 ^3/uL (1.6-8.6); Neutrophils % (auto) 61.3 % (37.0-80.0); Nucleated Red Blood Cells % 0.1 %; Red Blood Cells 4.85 10^6/uL (4.5-5.90); Red Cell Distribution Width 13.2 % (11.8-14.3); White Blood Cell 7.8 10^3/uL (4.4-10.8)
[2021-05-23 22:06] LABS: Urine Bacteria NONE SEEN /hpf (None Seen); Urine Blood Negative /uL (Negative); Urine Specific Gravity 1.009 (1.001-1.035); Urine WBC <1 /hpf (0 - 3)
[2021-05-23 22:23] LABS: Albumin 3.9 g/dL (3.4-5.0); Potassium 3.8 mmol/L (3.5-5.1)
[2021-05-23 22:25] LABS: BUN/Creatinine Ratio 11.8
[2021-05-23 22:27] LABS: Acetaminophen < 2.0 ug/mL (10-30); Bilirubin, Total 0.3 mg/dL (0.2-1.0); Salicylate < 1.7 mg/dL (2.8-20.0); Total Protein 7.2 g/dL (6.4-8.2)
[2021-05-23 22:27] LABS: Alcohol, Urine < 3.0 mg/dL (0-10); Amphetamine Screen, Urine NEGATIVE (NEGATIVE); Barbiturate Scree,Urine NEGATIVE (NEGATIVE); Benzodiazephine Screen, Urine NEGATIVE (NEGATIVE); Cannabinoid Screen, Urine NEGATIVE (NEGATIVE); Cocaine Screen, Urine NEGATIVE (NEGATIVE); Opiate Scree,Urine NEGATIVE (NEGATIVE); Phencyclidine Screen, Urine NEGATIVE (NEGATIVE)
[2021-05-24] MEDS ORDERED: OLANZapine 5 MG TAB PO ONE (06:15)
[2021-05-25 15:18] VITALS: BP 136/77
== END 2021-05-25 16:18 | disposition short-term general hospital (02) ==
LOC: ER 21:21
DX: R45.851 Suicidal ideations (principal); F41.9 Anxiety disorder, unspecified; F32.9 Major depressive disorder, single episode, unspecified; F20.9 Schizophrenia, unspecified; Z20.822 Contact with and (suspected) exposure to COVID-19
CPT/HCPCS: 36415; 80053; 80307; 80320; 80329; 81001; 85025; 87426

== ENCOUNTER 2021-12-27 10:40 | Emergency (ER) | payer MEDICAID ==
[~2021-12-27] VITALS: Ht 167.6 cm; Wt 100.7 kg
[2021-12-27 10:44] VITALS: BP 107/45
[2021-12-27] MEDS ORDERED: ONDANSETRON ODT 4 MG TAB PO ONE (11:00)
[2021-12-27 11:57] LABS: Urine Bacteria FEW /hpf (None Seen); Urine Blood Negative /uL (Negative); Urine Mucus FEW (None Seen); Urine Specific Gravity 1.028 (1.001-1.035); Urine WBC <1 /hpf (0 - 3)
[2021-12-27] MEDS ORDERED: ONDA-144 PO (12:11)
[2021-12-27] MEDS ORDERED: ACETAMINOPHEN 325 MG TAB PO ONE (12:15)
== END 2021-12-27 14:09 | disposition left against medical advice (07) ==
LOC: ER 10:40
DX: R10.2 Pelvic and perineal pain (principal); R30.0 Dysuria; R11.2 Nausea with vomiting, unspecified; J45.909 Unspecified asthma, uncomplicated; E11.9 Type 2 diabetes mellitus without complications; Z79.2 Long term (current) use of antibiotics; Z79.899 Other long term (current) drug therapy
CPT/HCPCS: 81001; Q0162

== ENCOUNTER 2023-08-01 07:41 | Emergency (ER) | payer MEDICAID ==
[~2023-08-01] VITALS: Ht 172.7 cm; Wt 97.1 kg
[~2023-08-01 07:41] MED LIST changes: +CLON-1003 PO; -CLON0.5T PO; +FLUC200T PO; -FLUC200T35 PO; -LURA40TA PO; +LURA40TA2 PO; -LURA80TA PO; +LURA80TA2 PO; +ONDA-144 PO
[2023-08-01 08:49] VITALS: BP 121/69; PULSE 67; RESP 16; TEMP 98.9; O2SAT 98
[2023-08-01] MEDS ORDERED: MELO-335 PO (09:54)
== END 2023-08-01 09:55 | disposition home or self-care (01) ==
LOC: ER 07:41
DX: M72.2 Plantar fascial fibromatosis (principal); F41.9 Anxiety disorder, unspecified; J45.909 Unspecified asthma, uncomplicated; E11.9 Type 2 diabetes mellitus without complications
CPT/HCPCS: 73620

== ENCOUNTER 2024-11-03 08:54 | Emergency (ER) | payer MEDICAID ==
[~2024-11-03] VITALS: Ht 170.2 cm; Wt 94.0 kg
[~2024-11-03 08:54] MED LIST changes: +MELO15TA29 PO
[2024-11-03 09:22] VITALS: BP 109/64; PULSE 74; RESP 16; TEMP 98; O2SAT 98
[2024-11-03] MEDS ORDERED: IBUP-1455 PO (09:45)
--- NOTE | 2024-11-03 09:46 | ED.PDOC ---
History of Present Illness HPI Comments Patient complaining of right-sided chest pain no shortness a breath x1 week. States he was lying on the floor trying to help his mother get something out from under the bed when he felt a pop sensation in his ribs. States since then he has been having pain and tenderness in the area. Having hard time breathing when he takes deep breath. Chief Complaint: Shortness of Breath Time Seen by MD: 09:11 Primary Care Provider: TARA Roa Notes: Nurses Notes Allergies: Coded Allergies: NO KNOWN ALLERGIES (Unverified , 06/17/20) Home Meds Active Scripts Meloxicam (Meloxicam) 15 Mg Tab, 1 TAB PO DAILY for 10 Days, #10 TAB 0 Refills Prov:JUHI PETERSON NP 08/01/23 Ondansetron (Zofran) 4 Mg Tab, 1 TAB PO Q6HR, #20 TAB Prov:ALANA VARGAS MD 12/27/21 Doxycycline Hyclate (DOXYCYCLINE HYCLATE) 100 Mg Tab, 1 TAB PO BID, #10 TAB Prov:ANANTH PINTO MD 01/23/20 Fluconazole (Diflucan) 200 Mg Tab, 400 MG PO DAILY, #4 TAB Prov:ANANTH PINTO MD 01/23/20 Reported Medications Venlafaxine Hydrochloride (Venlafaxine Hcl) 75 Mg Tab, 75 MG PO DAILY, TAB 01/17/20 Olanzapine (OLANZAPINE) 10 Mg Tab, 10 MG PO HS, TAB 01/17/20 Olanzapine (OLANZAPINE) 5 Mg Tab, 5 MG PO HS, TAB 01/17/20 Lurasidone Hcl (LATUDA) 80 Mg Tab, 80 MG PO HS, TAB 01/17/20 Lurasidone Hydrochloride (LATUDA) 40 Mg Tab, 40 MG PO HS, TAB 01/17/20 Clonazepam (Klonopin) 0.5 Mg Tab, 0.5 MG PO HS, TAB 01/17/20 Sertraline Hcl (Zoloft) 100 Mg Tab, 1 TAB PO DAILY, #30 TAB 5 Refills 01/17/20 Information Source: Patient Mode of Arrival: Ambulatory Past Medical History PAST MEDICAL HISTORY: Anxiety, Asthma, Depression, DM, MRSA, Schizophrenia Family History Family History: Reviewed,noncontributory to illness, Family hx of Cancer, Family hx of heart freda Family History (Other): psychiatric Social History Smoker: Non-Smoker Alcohol: Denies ETOH Use Drugs: Denies Drug Use Lives In: Home Constitutional: denies: chills, diaphoresis, fatigue, fever, malaise, sweats, weakness, others EENTM: denies: blurred vision, double vision, ear bleeding, ear discharge, ear drainage, ear pain, ear ringing, eye pain, eye redness, hearing loss, mouth pain, mouth swelling, nasal discharge, nose bleeding, nose congestion, nose pain, photophobia, tearing, throat pain, throat swelling, voice changes, others Respiratory: reports: shortness of breath; denies: cough, hemoptysis, or thopnea, SOB with excertion, stridor, wheezing, others Cardiovascular: reports: chest pain; denies: dizzy spells, diaphoresis, Dyspnea on exertion, edema, irregular heart beat, left arm pain, lightheadedness, palp itations, PND, syncope, others Gastrointestinal: denies: abdomen distended, abdominal pain, blood streaked bowels, constipated, diarrhea, dysphagia, difficulty swallowing, hematemesis, melena, nausea, poor appetite, poor fluid intake, rectal bleeding, rectal pain, vomiting, others Genitourinary: denies: burning, dysuria, flank pain, frequency, hematuria, incontinence, penile discharge, penile sore, pain, testicle pain, testicle swelling, urgency, others Neurological: denies: dizziness, fainting, headache, left sided numbness, left sided weakness, numbness, paresthesia, pre-existing deficit, right sided numbness, right sided weakness, seizure, speech problems, tingling, tremors, weakness, others Musculoskeletal: denies: back pain, gout, joint pain, joint swelling, muscle pain, muscle stiffness, neck pain, others Integumetry: denies: bruises, change in color, change in hair/nails, dryness, laceration, lesions, lumps, rash, wounds, others Allergic/Immunocompromised: denies: Difficulty Healing, Frequent Infections, Hives, Itching, others Physical Exam General Appearance: No Apparent Distress, Normal HEENT: Normal ENT Inspection, Pharynx Normal, TMs Normal Neck: Full Range of Motion, Non-Tender, Normal, Normal Inspection Respiratory: Chest Non-Tender, Lungs Clear, No Accessory Muscle Use, No Respiratory Distress, Normal Breath Sounds Cardiovascular: No Edema, No JVD, No Murmur, No Gallop, Normal Peripheral Pulses, Regular Rate/Rhythm, Other (Right-sided chest wall at the 5th and 6th rib tender to palpation, no obvious crepitus noted. No bruising.) Breast Exam: Deferred Gastrointestinal: No Organomegaly, Non Tender, No Pulsatile Mass, Normal Bowel Sounds, Soft Genitalia: Deferred Pelvic: Deferred Rectal: Deferred Extremities: No calf tenderness, Normal capillary refill, Normal inspection, Normal range of motion, Non-tender, No pedal edema Musculoskeletal : Apperance: Normal Neurologic: Alert, manager account management II-XII nml as Tested, No Motor Deficits, Normal Affect, Normal Mood, No Sensory Deficits Cerebellar Function: Normal Reflexes: Normal Skin: Dry, Normal Color, Warm Lymphatic: No Adenopathy Was a procedure done? Was a procedure done?: No Differential Dx Considerations may include: URI, influenza, COVID, strep throat, pharyngitis, pneumonia, rib contusion, rib fracture X-Ray, Labs, Meds, VS Vital Signs Date Time Temp Pulse Resp B/P (MAP) Pulse Ox O2 Delivery O2 Flow Rate FiO2 11/03/24 09:22 74 16 98 Room Air 11/03/24 09:22 98.0 74 16 109/64 (79) 98 98.0 11/03/24 09:06 68 11/03/24 09:04 98.0 74 16 109/64 (79) 98 X-Ray, Labs, Meds, VS Comment Imaging: X-rays and CT scans were reviewed and interpreted by this provider, imaging shows no fractures and no pathological disease. Pending radiology review. Laboratory: Labs reviewed and interpreted by this provider. No significant abnormalities noted. Patient has prior medical visits reviewed. Med reconciliation performed Vital signs reviewed Time of 1ST Reevaluation: 09:46 Reevaluation 1ST: Improved Patient Education/Counseling: Diagnosis, Treatment, Need For Follow Up (Patient advised to follow-up in the emergency room in the next 24 to 48 hours if symptoms do not improve. Advised follow-up with PCP in the next 3 to 5 days. Patient verbalized understanding. ) Family Education/Counseling: Diagnosis Departure 1 Departure Time of Disposition: 09:44 Impression: Primary Impression: Rib contusion Qualified Codes: S20.211A - Contusion of right front wall of thorax, initial encounter Disposition: HOME / SELF CARE / HOMELESS Condition: Fair e-Prescriptions Ibuprofen Micronized (Ibuprofen) 800 Mg Tab 800 MG PO TID PRN, #40 TAB Prov: INGA DIAZ 11/03/24 Discharged With: Self Critical Care Note Critical Care Time?: No Stability Stability form required: No Heart Score Heart Score: Heart Score Response (Comments) Value History N/A 0 EKG N/A 0 Age N/A 0 Risk Factors N/A 0 Troponin N/A 0 Total 0 INGA DIAZ Nov 03, 2024 09:46
--- NOTE | 2024-11-05 14:29 | ECG ---
[facility] Test Date: 2024-11-03 Test Time: 09:06:37 Pat Name: NOHEMY BROWN Department: ER Room: Gender: M Youtuber: dr FRANCO: 2000 Requested By: INGA DIAZ Order Number: [id number] Reading MD: Measurements Intervals [place] Rate: 68 P: 44 MD: 176 QRS: 32 QRSD: 99 T: 4 QT: 421 QTc: 448 Interpretive Statements Sinus rhythm Inferior infarct, old Please click the below link to view image of tracing.
== END 2024-11-03 10:03 | disposition home or self-care (01) ==
LOC: ER 08:54
DX: S20.211A Contusion of right front wall of thorax, initial encounter (principal); E11.9 Type 2 diabetes mellitus without complications; J45.909 Unspecified asthma, uncomplicated; Z79.1 Long term (current) use of non-steroidal anti-inflammatories (NSAID); Z79.899 Other long term (current) drug therapy; X50.1XXA Overexertion from prolonged static or awkward postures, initial encounter; Y93.89 Activity, other specified; Y92.89 Other specified places as the place of occurrence of the external cause; Y99.8 Other external cause status
CPT/HCPCS: 93005

== ENCOUNTER 2025-01-20 07:56 | Emergency (ER) | payer MEDICAID ==
[~2025-01-20] VITALS: Ht 167.6 cm; Wt 95.4 kg
[~2025-01-20 07:56] MED LIST changes: +IBUP-1455 PO
--- NOTE | 2025-01-20 09:06 | DVH ---
CLINICAL INDICATION: Pain/ r/o fracture TECHNIQUE: XY L KNEE 3V XRAY Comparison: None FINDINGS/IMPRESSION: : There is no evidence of acute fracture or dislocation. Soft tissues are unremarkable.
[2025-01-20 09:10] VITALS: BP 123/74; PULSE 76; RESP 17; TEMP 98.1; O2SAT 97
[2025-01-20 09:15] LABS: Basophils # (auto) 0 10 ^3/uL (0-0.2); Basophils % (auto) 0.5 % (0.0-2.0); Eosinophils # (auto) 0.1 10 ^3/uL (0-0.8); Eosinophils % (auto) 1.5 % (0.0-7.0); Hematocrit 42.3 % (41.0-53.0); Hemoglobin 14.5 g/dL (13.5-17.5); Lymphocytes # (auto) 1.8 10 ^3/uL (0.4-5.4); Lymphocytes % (auto) 19.7 % (10.0-50.0); Mean Corpuscular Hemoglobin 29.5 pg (28.0-32.0); Mean Corpuscular Hgb Conc. 34.3 g/dL (32.0-36.0); Mean Corpuscular Volume 85.9 fL (80.0-100.0); Monocytes # (auto) 0.5 10 ^3/uL (0-1.3); Monocytes % (auto) 5.3 % (0.0-12.0); Neutrophils # (auto) 6.8 10 ^3/uL (1.6-8.6); Platelet Count (auto) 302 10^3/uL (140-450); Red Blood Cells 4.92 10^6/uL (4.5-5.90); Red Cell Distribution Width 13.6 % (11.8-14.3); White Blood Cell 9.3 10^3/uL (4.4-10.8)
[2025-01-20 09:20] LABS: Potassium 3.7 mmol/L (3.5-5.1); Sodium 145 mmol/L (136-145)
[2025-01-20 09:21] LABS: Anion Gap 9 (5-15); Calcium 9.8 mg/dL (8.7-10.4); Carbon Dioxide 25 mmol/L (20-31)
[2025-01-20 09:26] LABS: BUN/Creatinine Ratio 5.9 (10.0-20.0); Glucose 99 mg/dL (74-106)
[2025-01-20 09:27] LABS: Blood Urea Nitrogen 6 mg/dL (9-23); Chloride 111 mmol/L (98-107)
--- NOTE | 2025-01-20 09:47 | ED.PDOC ---
Musculoskeletal HPI Comments This is a pleasant 24-year-old gentleman with a pertinent MHx that presents with a chief complaint of atraumatic nonradiating left anterior knee pain x1 week. No trauma no injury. Symptoms started suddenly at home and pain has been persistent since. Pain is located to the anterior patella. Described as constant pressure and the pain is currently rated as mild to moderate. Aggravated with ambulation and alleviated at rest. Able to get relief with [id number] ibuprofen. Able to bear weight on the leg Denies trauma to the knee or recent fall Denies skin color changes around the knee Denies masses around the knee Denies popping/locking/giving out of the knee Denies fever chills night sweats nausea vomiting Denies previous surgeries to the knee nor significant injury Chief Complaint: Lower Extremity Time Seen by MD: 08:25 Primary Care Provider: CARLEEN Roa Notes: Nurses Notes, Medications, Allergies Allergies: Coded Allergies: NO KNOWN ALLERGIES (Unverified , 06/17/20) Home Meds Active Scripts Ibuprofen Micronized (Ibuprofen) 800 Mg Tab, 800 MG PO TID PRN, #40 TAB Prov:INGA DIAZP 11/03/24 Meloxicam (Meloxicam) 15 Mg Tab, 1 TAB PO DAILY for 10 Days, #10 TAB 0 Refills Prov:JUHI PETERSON OIL TREATER 08/01/23 Ondansetron (Zofran) 4 Mg Tab, 1 TAB PO Q6HR, #20 TAB Prov:ALANA VARGAS MD 12/27/21 Doxycycline Hyclate (DOXYCYCLINE HYCLATE) 100 Mg Tab, 1 TAB PO BID, #10 TAB Prov:ANANTH PINTO MD 01/23/20 Fluconazole (Diflucan) 200 Mg Tab, 400 MG PO DAILY, #4 TAB Prov:ANANTH PINTO MD 01/23/20 Reported Medications Venlafaxine Hydrochloride (Venlafaxine Hcl) 75 Mg Tab, 75 MG PO DAILY, TAB 01/17/20 Olanzapine (OLANZAPINE) 10 Mg Tab, 10 MG PO HS, TAB 01/17/20 Olanzapine (OLANZAPINE) 5 Mg Tab, 5 MG PO HS, TAB 01/17/20 Lurasidone Hcl (LATUDA) 80 Mg Tab, 80 MG PO HS, TAB 01/17/20 Lurasidone Hydrochloride (LATUDA) 40 Mg Tab, 40 MG PO HS, TAB 01/17/20 Clonazepam (Klonopin) 0.5 Mg Tab, 0.5 MG PO HS, TAB 01/17/20 Sertraline Hcl (Zoloft) 100 Mg Tab, 1 TAB PO DAILY, #30 TAB 5 Refills 01/17/20 Information Source: Patient Mode of Arrival: Ambulatory Past Medical History PAST MEDICAL HISTORY: Anxiety, Asthma, Depression, DM, MRSA, Schizophrenia Family History Family History: Reviewed,noncontributory to illness, Family hx of Cancer, Family hx of heart freda Family History (Other): psychiatric Social History Smoker: Non-Smoker Alcohol: Denies ETOH Use Drugs: Denies Drug Use Lives In: Home All Other Systems: Reviewed and Negative (Per HPI) Physical Exam General Appearance: No Apparent Distress, Normal HEENT: Normal ENT Inspection, Pharynx Normal, TMs Normal Neck: Full Range of Motion, Non-Tender, Normal, Normal Inspection Respiratory: Chest Non-Tender, Lungs Clear, No Accessory Muscle Use, No Respiratory Distress, Normal Breath Sounds Cardiovascular: No Edema, No JVD, No Murmur, No Gallop, Normal Peripheral Pulses, Regular Rate/Rhythm Breast Exam: Deferred Gastrointestinal: No Organomegaly, Non Tender, No Pulsatile Mass, Normal Bowel Sounds, Soft Genitalia: Deferred Pelvic: Deferred Rectal: Deferred Extremities: No calf tenderness, Normal capillary refill, Normal inspection, Normal range of motion, Non-tender, No pedal edema Musculoskeletal : Location: Left Extremity Location: Knee (No gross abnormality on inspection. No effusion ecchymosis erythema or warmth. No tenderness to the anterior patella. Full pa ssive and active range of motion. Distal neuro sensation intact) Apperance: Normal Neurologic: Alert, director of psychiatry II-XII nml as Tested, No Motor Deficits, Normal Affect, Normal Mood, No Sensory Deficits Cerebellar Function: Normal Reflexes: Normal Skin: Dry, Normal Color, Warm Lymphatic: No Adenopathy Was a procedure done? Was a procedure done?: No Differential Diagnosis EXT Differential Diagnosis: Fracture, Sprain, Dislocation X-Ray, Labs, Meds, VS Vital Signs Date Time Temp Pulse Resp B/P (MAP) Pulse Ox O2 Delivery O2 Flow Rate FiO2 01/20/25 09:10 76 17 97 Room Air* 0 21 01/20/25 09:10 98.1 76 17 123/74 (90) 97 98.1 01/20/25 08:05 97.5 85 16 123/82 (96) 96 97.5 Lab Test 01/20/25 09:00 Range/Units White Blood Count 9.3 4.4-10.8 10^3/uL Red Blood Count 4.92 4.5-5.90 10^6/uL Hemoglobin 14.5 13.5-17.5 g/dL Hematocrit 42.3 41.0-53.0 % Mean Corpuscular Volume 85.9 80.0-100.0 fL Mean Corpuscular Hemoglobin 29.5 28.0-32.0 pg Mean Corpuscular Hemoglobin Concent 34.3 32.0-36.0 g/dL Red Cell Distribution Width 13.6 11.8-14.3 % Platelet Count 302 140-450 10^3/uL Mean Platelet Volume 7.9 6.9-10.8 fL Neutrophils (%) (Auto) 73.0 37.0-80.0 % Lymphocytes (%) (Auto) 19.7 10.0-50.0 % Monocytes (%) (Auto) 5.3 0.0-12.0 % Eosinophils (%) (Auto) 1.5 0.0-7.0 % Basophils (%) (Auto) 0.5 0.0-2.0 % Neutrophils # (Auto) 6.8 1.6-8.6 10 ^3/uL Lymphocytes # (Auto) 1.8 0.4-5.4 10 ^3/uL Monocytes # (Auto) 0.5 0-1.3 10 ^3/uL Eosinophils # (Auto) 0.1 0-0.8 10 ^3/uL Basophils # (Auto) 0 0-0.2 10 ^3/uL Nucleated Red Blood Cells 0.0 % Sodium Level 145 136-145 mmol/L Potassium Level 3.7 3.5-5.1 mmol/L Chloride Level 111 H 98-107 mmol/L Carbon Dioxide Level 25 20-31 mmol/L Anion Gap 9 5-15 Blood Urea Nitrogen 6 L 9-23 mg/dL Creatinine 1.02 0.700-1.30 mg/dL Glomerular Filtration Rate Calc 105 >90 mL/min BUN/Creatinine Ratio 5.9 L 10.0-20.0 Serum Glucose 99 74-106 mg/dL Calcium Level 9.8 8.7-10.4 mg/dL X-Ray, Labs, Meds, VS Comment Patient presents w/ L knee pain. The patient's history of and presentation displays high suspicion for what appears to be knee sprain. There is low suspicion for multiple serious and potentially high morbidity etiologies which I considered which included fractures, however the history and physical exam did not show enough evidence. Imaging did not show any evidence of a fracture or dislocation. There is no evidence of neurovascular compromise or compartment syndrome, compartments are soft. No evidence of achilles tendon injury or rupture. No evidence of a proximal fibula injury. Discussed sprain care with the patient. Emphasized the importance of follow-up with their primary care doctor as there are many different types of knee injuries not always seen on xray including cartilage injury, meniscus and ligament tears and they may need further management if symptoms continue for a longer period of time. Declined crutches Return precautions were discussed in detail regarding increased pain, numbness, tingling, discoloration of toes. Patient verbalized understanding and agreed with the plan of care. All questions were answered. Time of 1ST Reevaluation: 09:43 Reevaluation 1ST: Improved Patient Education/Counseling: Diagnosis, Treatment Family Education/Counseling: Diagnosis, Treatment Departure 1 Departure Time of Disposition: 09:46 Impression: Primary Impression: Left knee pain Qualified Codes: M25.562 - Pain in left knee Disposition: 01 HOME / SELF CARE / HOMELESS Condition: Fair Discharged With: Self Critical Care Note Critical Care Time?: No Stability Stability form required: No Heart Score Heart Score: Heart Score Response (Comments) Value History N/A 0 EKG N/A 0 Age N/A 0 Risk Factors N/A 0 Troponin N/A 0 Total 0 JUHI PETERSON NP January 20, 2025 09:47
== END 2025-01-20 09:55 | disposition home or self-care (01) ==
LOC: ER 07:56
DX: M25.562 Pain in left knee (principal); E11.9 Type 2 diabetes mellitus without complications; F20.9 Schizophrenia, unspecified; F32.A Depression, unspecified; F41.9 Anxiety disorder, unspecified; J45.909 Unspecified asthma, uncomplicated; Z79.899 Other long term (current) drug therapy
CPT/HCPCS: 36415; 73562; 80048; 85025